=== PATIENT | male | born 1955 | race African-American/Black ===

== ENCOUNTER 2021-12-30 18:49 | Inpatient (IN) | payer OTHER ==
[2021-12-30 20:48] VITALS: BMI 23.4
[2021-12-30 21:50] LABS: INR-International Normal Ratio 1.6; Prothrombin Time 18.9 sec (12.0-14.7)
[2021-12-30] MEDS ORDERED: Morphine 2 MG/ML VIAL SLOW IVP PRN (21:50)
[2021-12-30 21:51] LABS: PTT 66.9 sec (22.9-36.1)
[2021-12-30 22:02] LABS: Hemoglobin 8.4 g/dL (14.0-18.0); Mean Corpuscular Volume 77.4 fL (78.0-98.0); Mean Platelet Volume 11.9 fL (7.4-10.4); Platelet Count 294 thou/uL (130-400); RBC Distribution Width 15.8 % (11.5-14.5); White Blood Cell (WBC) Count 19.5 thou/uL (4.8-10.8)
[2021-12-30 22:22] LABS: ALT (SGPT) 18 U/L (8-55); AST (SGOT) 28 U/L (5-34); Albumin 2.8 g/dL (3.4-4.8); Alkaline Phosphatase 227 U/L (40-110); Anion Gap 15 mmol/L (10-20); BUN (Urea Nitrogen) 32 mg/dL (8.4-25.7); Bilirubin, Total 2.8 mg/dL (0.2-1.2); Calc. Creatinine Clearance 38 mL/min (70-130); Carbon Dioxide 21 mmol/L (23-31); Chloride 109 mmol/L (98-107); Estimated GFR 35; Globulin 3.5 g/dL (2.4-3.5); Glucose 137 mg/dL (80-115); Potassium 3.3 mmol/L (3.5-5.1); Protein, Total 6.3 g/dL (5.8-8.1); Sodium 142 mmol/L (136-145)
[2021-12-30 22:40] LABS: Band 31 % (5-11); Hypochromia SLIGHT = 6-15 cells (100X) (0-5/hpf); Lymphocytes 1 % (21-51); MDiff Complete? YES; Monocytes 6 % (0-10); Neutrophil 62 % (42-75); Platelet Morphology Comment Appears Adequate; Polychromasia SLIGHT = 2-3 cells (100X) (0-2/hpf); Target Cells SLIGHT = 2-5 cells (100X) (0-1/hpf)
[2021-12-30 22:48] LABS: Lactic Acid 1.5 mmol/L (0.5-2.2)
[2021-12-30 22:51] LABS: Magnesium 1.9 mg/dL (1.6-2.6)
[2021-12-30] MEDS ORDERED: Vancomycin HCl 500 MG in Sodium Chloride 0.9% 100 ML IVPB SCH (23:00)
[2021-12-30] MEDS: Lactated Ringer's 1,000 ML IV SCH (23:38)
[2021-12-31] MEDS: Morphine 4 MG/ML VIAL SLOW IVP PRN ×2 (01:14→13:11)
[2021-12-31] MEDS: Cefepime 2 GM in Sodium Chloride 0.9% 100 ML IVPB SCH ×2 (02:14→13:12)
[2021-12-31 06:21] LABS: Reticulocyte Count 0.4 % (0.5-1.5)
[2021-12-31] MEDS ORDERED: Neomycin-Polymyxin 1 ML AMP ONE ×2 (06:32→18:39)
[2021-12-31 06:44] LABS: Band 34 % (5-11); Hemoglobin 7.7 g/dL (14.0-18.0); Hypochromia SLIGHT = 6-15 cells (100X) (0-5/hpf); MDiff Complete? YES; Mean Corpuscular HGB CONC 29.4 g/dL (32.0-36.0); Mean Corpuscular Hemoglobin 22.6 pg (27.0-31.0); Mean Corpuscular Volume 77.1 fL (78.0-98.0); Mean Platelet Volume 12.1 fL (7.4-10.4); Microcytosis SLIGHT = 6-15 cells (100X) (0-5/hpf); Monocytes 2 % (0-10); Neutrophil 64 % (42-75); Platelet Count 282 thou/uL (130-400); Platelet Morphology Comment Appears Adequate; RBC Distribution Width 15.9 % (11.5-14.5); Red Blood Cell (RBC) Count 3.41 mill/uL (4.70-6.10); White Blood Cell (WBC) Count 19.9 thou/uL (4.8-10.8)
[2021-12-31] MEDS ORDERED: fentaNYL Citrate/PF 100 MCG/2 ML SYRINGE ONE ×4 (07:02→20:39)
[2021-12-31] MEDS ORDERED: PROPOFOL 200 MG/20 ML VIAL ONE ×2 (07:29→19:27)
[2021-12-31] MEDS ORDERED: Rocuronium Bromide 10 MG/ML (10ML VIAL) ONE (07:29)
[2021-12-31] MEDS ORDERED: Ondansetron PF 4 MG/2 ML Vial ONE ×3 (07:29→19:27)
[2021-12-31] MEDS ORDERED: Norepinephrine 4 MG/4 ML VIAL ONE (07:34)
[2021-12-31 07:37] LABS: ALT (SGPT) 19 U/L (8-55); AST (SGOT) 34 U/L (5-34); Albumin 2.5 g/dL (3.4-4.8); Alkaline Phosphatase 236 U/L (40-110); Anion Gap 13 mmol/L (10-20); BUN (Urea Nitrogen) 31 mg/dL (8.4-25.7); Bilirubin, Total 2.3 mg/dL (0.2-1.2); Calc. Creatinine Clearance 41 mL/min (70-130); Calcium 8.8 mg/dL (7.8-10.44); Carbon Dioxide 20 mmol/L (23-31); Chloride 109 mmol/L (98-107); Estimated GFR 38; Globulin 3.1 g/dL (2.4-3.5); Glucose 153 mg/dL (80-115); Iron 9 ug/dL (65-175); Iron Binding Capacity, Total 103 mcg/dL (261-462); Magnesium 1.8 mg/dL (1.6-2.6); Potassium 3.4 mmol/L (3.5-5.1); Protein, Total 5.6 g/dL (5.8-8.1); Sodium 139 mmol/L (136-145)
[2021-12-31] MEDS ORDERED: SUGAMMADEX SODIUM 200 MG/2 ML VIAL ONE (08:38)
[2021-12-31] MEDS ORDERED: PACU-Morphine 4MG/ML VIAL SLOW IVP PRN (09:24)
[2021-12-31] MEDS ORDERED: Ondansetron HCl/PF 4 MG/2 ML Vial IVP PRN ×2 (09:24→18:53)
[2021-12-31] MEDS ORDERED: Promethazine HCl 25 MG/ML VIAL IVPB PRN ×2 (09:24→18:53)
[2021-12-31] MEDS ORDERED: Promethazine HCl 25 MG/ML VIAL IM PRN ×2 (09:24→18:53)
[2021-12-31] MEDS ORDERED: Morphine Sulfate 2 MG/ML SYRINGE SLOW IVP PRN (09:24)
[2021-12-31] MEDS ORDERED: HYDROmorphone 2 MG/ML VIAL SLOW IVP PRN (09:24)
[2021-12-31] MEDS ORDERED: Fentanyl 100 MCG/2 ML VIAL ONE ×2 (09:32→10:22)
[2021-12-31] MEDS: Lactated Ringer's 1,000 ML IV SCH ×2 (10:47→12:14)
[2021-12-31 13:11] LABS: Hemoglobin 8.8 g/dL (14.0-18.0)
[2021-12-31] MEDS ORDERED: Lidocaine 1% (PF) 30 ML VIAL ONE (13:23)
[2021-12-31 13:31] LABS: INR-International Normal Ratio 1.4; PTT 50.6 sec (22.9-36.1); Prothrombin Time 17.8 sec (12.0-14.7)
[2021-12-31 13:45] LABS: Hep C IgG Ab Non-Reactive (NonReactive); Hep C Index 0.09 S/CO (0-0.79)
[2021-12-31 15:15] LABS: Synovial Fluid, Protein 3.1 g/dL (Not Available)
[2021-12-31] MEDS: Acetaminophen 325 MG TAB PO PRN (16:01)
[2021-12-31] MEDS: Sodium Chloride 0.9% 1,000 ML IV SCH (16:01)
[2021-12-31 16:19] LABS: RBC Count-Automated (BF) 113637 /cu.mm; WBC/Nucleated-Auto (BF) 46477 /cu.mm
[2021-12-31 16:33] LABS: BF Color Red; Body Fluid Source Synovial Fluid; Clarity Cloudy/Turbid (Clear); Tube # EDTA
[2021-12-31 16:46] LABS: BF Segmented Neutrophils 96 %; Cell Count Non Hematic 1 %; Lymphocytes 3 %
[2021-12-31] MEDS ORDERED: VANCOMYCIN 1.25 GM/250 ML BAG 1.25 GM in Premix Bag 1 BAG IVPB SCH (17:00)
[2021-12-31] MEDS ORDERED: Bupivacaine PF 0.5% 30 ML VIAL ONE (18:39)
[2021-12-31] MEDS ORDERED: Meperidine HCl/PF 25 MG/ML VIAL SLOW IVP PRN (18:53)
[2021-12-31] MEDS ORDERED: Dexamethasone 20 MG/5 ML VIAL ONE (19:27)
[2021-12-31] MEDS ORDERED: Succinylcholine 200 MG/10 ml SYRINGE FS ONE (19:27)
[2021-12-31] MEDS ORDERED: PHENYLEPHRINE-NS 100 MCG/ML 10 ML SYRINGE ONE (19:27)
[2021-12-31] MEDS ORDERED: Ketorolac Tromethamine 30 MG/ML VIAL ONE (19:27)
[2022-01-01] MEDS: Cefepime 2 GM in Sodium Chloride 0.9% 100 ML IVPB SCH ×2 (03:05→13:53)
[2022-01-01] MEDS: Sodium Chloride 0.9% 1,000 ML IV SCH ×3 (03:05→21:06)
[2022-01-01] MEDS: Morphine 4 MG/ML VIAL SLOW IVP PRN ×3 (03:58→17:19)
[2022-01-01 06:23] LABS: Hemoglobin 8.4 g/dL (14.0-18.0); Mean Corpuscular HGB CONC 29.9 g/dL (32.0-36.0); Mean Corpuscular Hemoglobin 23.4 pg (27.0-31.0); Mean Corpuscular Volume 78.2 fL (78.0-98.0); Mean Platelet Volume 11.7 fL (7.4-10.4); Platelet Count 282 thou/uL (130-400); White Blood Cell (WBC) Count 25.2 thou/uL (4.8-10.8)
[2022-01-01 06:42] LABS: Anisocytosis SLIGHT = 6-15 cells (100X) (0-5/hpf); Band 28 % (5-11); Burr Cells SLIGHT = 2-5 cells (100X) (0-1/hpf); Elliptocytes SLIGHT = 2-5 cells (100X) (0-1/hpf); Hypochromia SLIGHT = 6-15 cells (100X) (0-5/hpf); Lymphocytes 4 % (21-51); MDiff Complete? YES; Metamyelocyte 1 % (0-0); Neutrophil 67 % (42-75); Poikilocytosis SLIGHT = 6-15 cells (100X) (0-5/hpf); Schistocytes SLIGHT = 2-5 cells (100X) (0-1/hpf); Target Cells SLIGHT = 2-5 cells (100X) (0-1/hpf)
[2022-01-01 09:43] LABS: ALT (SGPT) 22 U/L (8-55); AST (SGOT) 37 U/L (5-34); Albumin 2.5 g/dL (3.4-4.8); Alkaline Phosphatase 251 U/L (40-110); Anion Gap 12 mmol/L (10-20); BUN (Urea Nitrogen) 29 mg/dL (8.4-25.7); Calc. Creatinine Clearance 51 mL/min (70-130); Calcium 8.9 mg/dL (7.8-10.44); Carbon Dioxide 20 mmol/L (23-31); Chloride 111 mmol/L (98-107); Estimated GFR 49; Globulin 3.4 g/dL (2.4-3.5); Glucose 143 mg/dL (80-115); Potassium 4.3 mmol/L (3.5-5.1); Protein, Total 5.9 g/dL (5.8-8.1); Sodium 139 mmol/L (136-145)
[2022-01-01] MEDS ORDERED: Colchicine 0.6 MG TAB PO SCH (10:30)
[2022-01-01] MEDS: Colchicine 0.6 MG TAB PO SCH ×2 (12:14→21:05)
[2022-01-01 16:34] LABS: Vancomycin, Trough 10.5 ug/mL
[2022-01-01] MEDS: Vancomycin 1 GM in Premix Bag 1 BAG IVPB SCH (17:16)
[2022-01-01] MEDS: Acetaminophen 325 MG TAB PO PRN (17:18)
[2022-01-02] MEDS: Morphine 4 MG/ML VIAL SLOW IVP PRN ×2 (05:06→09:00)
[2022-01-02] MEDS: Vancomycin 1 GM in Premix Bag 1 BAG IVPB SCH ×2 (05:06→17:38)
[2022-01-02 06:40] LABS: Mean Corpuscular HGB CONC 30.4 g/dL (32.0-36.0); Mean Corpuscular Hemoglobin 23.5 pg (27.0-31.0); Mean Corpuscular Volume 77.2 fL (78.0-98.0); Mean Platelet Volume 11.7 fL (7.4-10.4); Platelet Count 297 thou/uL (130-400); RBC Distribution Width 18.9 % (11.5-14.5); Red Blood Cell (RBC) Count 3.82 mill/uL (4.70-6.10); White Blood Cell (WBC) Count 26.8 thou/uL (4.8-10.8)
[2022-01-02 06:50] LABS: Anion Gap 13 mmol/L (10-20); BUN (Urea Nitrogen) 32 mg/dL (8.4-25.7); Calc. Creatinine Clearance 65 mL/min (70-130); Calcium 8.7 mg/dL (7.8-10.44); Carbon Dioxide 21 mmol/L (23-31); Chloride 107 mmol/L (98-107); Estimated GFR 66; Glucose 103 mg/dL (80-115); Potassium 3.7 mmol/L (3.5-5.1); Sodium 137 mmol/L (136-145)
[2022-01-02 06:52] LABS: Band 15 % (5-11); Elliptocytes SLIGHT = 2-5 cells (100X) (0-1/hpf); Eosinophils 1 % (0-10); Lymphocytes 3 % (21-51); MDiff Complete? YES; Monocytes 4 % (0-10); Myelocyte 2 % (0-0); Neutrophil 75 % (42-75); Nucleated RBC 1 % (0); Schistocytes SLIGHT = 2-5 cells (100X) (0-1/hpf); Target Cells SLIGHT = 2-5 cells (100X) (0-1/hpf)
[2022-01-02] MEDS: Colchicine 0.6 MG TAB PO SCH ×3 (08:53→21:26)
[2022-01-02] MEDS: Sodium Chloride 0.9% 1,000 ML IV SCH (08:53)
[2022-01-02] MEDS ORDERED: hydrALAZINE 20 MG/ML VIAL SLOW IVP PRN (09:33)
[2022-01-02] MEDS ORDERED: Amlodipine 5 MG TAB PO SCH (09:45)
[2022-01-02] MEDS: Acetaminophen 325 MG TAB PO PRN (13:37)
[2022-01-02] MEDS: traMADol HCl 50 MG TAB PO PRN ×2 (13:38→21:26)
[2022-01-03 01:56] LABS: Bilirubin Negative (Negative); Blood, Urine Trace (Negative); Clarity Clear (Clear); Glucose, Urine (Dipstick) Normal (Negative); Ketone, Urine Negative (Negative); Leukocyte Negative Leu/uL (Negative); Nitrite Negative (Negative); Protein, Urine (Dipstick) 20 mg/dL (Neg-Trace); Specific Gravity, Urine 1.012 (1.002-1.036); Squamous Epithelial None Seen HPF (0-3); Urobilinogen Normal mg/dL (Less than 2); WBC/HPF 0-3 HPF (0-3)
[2022-01-03 01:57] LABS: Bacteria/HPF 1+ HPF (None Seen)
[2022-01-03] MEDS: traMADol HCl 50 MG TAB PO PRN ×3 (04:23→20:54)
[2022-01-03 06:15] LABS: Anion Gap 15 mmol/L (10-20); BUN (Urea Nitrogen) 25 mg/dL (8.4-25.7); Calc. Creatinine Clearance 73 mL/min (70-130); Carbon Dioxide 21 mmol/L (23-31); Estimated GFR 75; Glucose 91 mg/dL (80-115); Potassium 3.9 mmol/L (3.5-5.1); Sodium 135 mmol/L (136-145)
[2022-01-03] MEDS: Vancomycin 1 GM in Premix Bag 1 BAG IVPB SCH ×2 (06:20→16:52)
[2022-01-03 06:22] LABS: Chloride 103 mmol/L (98-107)
[2022-01-03 06:33] LABS: Anisocytosis MODERATE=16-30 cells (100X) (0-5/hpf); Band 20 % (5-11); Elliptocytes SLIGHT = 2-5 cells (100X) (0-1/hpf); Hemoglobin 9.6 g/dL (14.0-18.0); Lymphocytes 10 % (21-51); MDiff Complete? YES; Mean Corpuscular HGB CONC 31.2 g/dL (32.0-36.0); Mean Corpuscular Hemoglobin 23.3 pg (27.0-31.0); Mean Corpuscular Volume 74.6 fL (78.0-98.0); Monocytes 1 % (0-10); Neutrophil 69 % (42-75); Platelet Count 319 thou/uL (130-400); Platelet Morphology Comment Appears Adequate; RBC Distribution Width 18.5 % (11.5-14.5); Red Blood Cell (RBC) Count 4.13 mill/uL (4.70-6.10); Target Cells SLIGHT = 2-5 cells (100X) (0-1/hpf); White Blood Cell (WBC) Count 24.2 thou/uL (4.8-10.8)
[2022-01-03] MEDS: Lisinopril 20 MG TAB PO SCH (09:22)
[2022-01-03] MEDS: Amlodipine 5 MG TAB PO SCH (09:23)
[2022-01-03] MEDS: Colchicine 0.6 MG TAB PO SCH ×2 (09:23→20:55)
[2022-01-03] MEDS: Acetaminophen 325 MG TAB PO PRN ×2 (09:31→20:54)
[2022-01-03] MEDS: Ketorolac Tromethamine 30 MG/ML VIAL IVP SCH ×2 (14:03→17:08)
[2022-01-04] MEDS: Acetaminophen 325 MG TAB PO PRN ×2 (00:01→04:37)
[2022-01-04] MEDS: traMADol HCl 50 MG TAB PO PRN ×4 (00:02→20:44)
[2022-01-04] MEDS: Ketorolac Tromethamine 30 MG/ML VIAL IVP SCH ×4 (00:03→18:03)
[2022-01-04] MEDS: Vancomycin 1 GM in Premix Bag 1 BAG IVPB SCH ×2 (04:35→18:03)
[2022-01-04 05:33] LABS: Anion Gap 12 mmol/L (10-20); BUN (Urea Nitrogen) 26 mg/dL (8.4-25.7); Calc. Creatinine Clearance 79 mL/min (70-130); Calcium 8.6 mg/dL (7.8-10.44); Carbon Dioxide 24 mmol/L (23-31); Chloride 101 mmol/L (98-107); Estimated GFR 84; Glucose 85 mg/dL (80-115); Potassium 3.9 mmol/L (3.5-5.1); Sodium 133 mmol/L (136-145)
[2022-01-04 06:08] LABS: Anisocytosis SLIGHT = 6-15 cells (100X) (0-5/hpf); Band 9 % (5-11); Hemoglobin 9.2 g/dL (14.0-18.0); Lymphocytes 10 % (21-51); MDiff Complete? YES; Mean Corpuscular HGB CONC 30.6 g/dL (32.0-36.0); Mean Corpuscular Hemoglobin 23.1 pg (27.0-31.0); Mean Corpuscular Volume 75.4 fL (78.0-98.0); Metamyelocyte 1 % (0-0); Monocytes 3 % (0-10); Myelocyte 2 % (0-0); Neutrophil 75 % (42-75); Platelet Count 313 thou/uL (130-400); RBC Distribution Width 19.3 % (11.5-14.5); Red Blood Cell (RBC) Count 3.97 mill/uL (4.70-6.10); Schistocytes SLIGHT = 2-5 cells (100X) (0-1/hpf); Target Cells SLIGHT = 2-5 cells (100X) (0-1/hpf); White Blood Cell (WBC) Count 23.3 thou/uL (4.8-10.8)
[2022-01-04] MEDS: Colchicine 0.6 MG TAB PO SCH ×2 (08:42→20:45)
[2022-01-04] MEDS: Lisinopril 20 MG TAB PO SCH (08:56)
[2022-01-04] MEDS: Amlodipine 5 MG TAB PO SCH (08:56)
[2022-01-04] MEDS: Ondansetron PF 4 MG/2 ML Vial IVP PRN (20:44)
[2022-01-05 02:37] LABS: QuantiFERON-TB Gold Plus POSITIVE (Negative)
[2022-01-05] MEDS: Morphine 4 MG/ML VIAL SLOW IVP PRN ×2 (02:48→22:06)
[2022-01-05] MEDS: Ketorolac Tromethamine 30 MG/ML VIAL IVP SCH ×5 (05:30→23:00)
[2022-01-05] MEDS: Vancomycin 1 GM in Premix Bag 1 BAG IVPB SCH (05:30)
[2022-01-05 06:04] LABS: Anion Gap 12 mmol/L (10-20); BUN (Urea Nitrogen) 27 mg/dL (8.4-25.7); Calc. Creatinine Clearance 68 mL/min (70-130); Calcium 8.6 mg/dL (7.8-10.44); Carbon Dioxide 23 mmol/L (23-31); Chloride 101 mmol/L (98-107); Estimated GFR 69; Glucose 101 mg/dL (80-115); Potassium 4.2 mmol/L (3.5-5.1); Sodium 132 mmol/L (136-145)
[2022-01-05 06:39] LABS: Anisocytosis SLIGHT = 6-15 cells (100X) (0-5/hpf); Band 14 % (5-11); Elliptocytes SLIGHT = 2-5 cells (100X) (0-1/hpf); Eosinophils 2 % (0-10); Hemoglobin 8.5 g/dL (14.0-18.0); Hypochromia SLIGHT = 6-15 cells (100X) (0-5/hpf); Lymphocytes 9 % (21-51); MDiff Complete? YES; Mean Corpuscular HGB CONC 30.5 g/dL (32.0-36.0); Mean Corpuscular Hemoglobin 23.1 pg (27.0-31.0); Mean Corpuscular Volume 75.9 fl (78.0-98.0); Mean Platelet Volume 11.2 fL (7.4-10.4); Monocytes 4 % (0-10); Myelocyte 1 % (0-0); Neutrophil 70 % (42-75); Platelet Count 367 thou/uL (130-400); Platelet Morphology Comment Appears Adequate; RBC Distribution Width 19.1 % (11.5-14.5); Red Blood Cell (RBC) Count 3.66 mill/uL (4.70-6.10); Target Cells SLIGHT = 2-5 cells (100X) (0-1/hpf); White Blood Cell (WBC) Count 23.6 thou/uL (4.8-10.8)
[2022-01-05] MEDS ORDERED: PROPOFOL 200 MG/20 ML VIAL ONE (09:04)
[2022-01-05] MEDS ORDERED: Magnevist 469MG/ML 20 ML VIAL ONE ×2 (10:21)
[2022-01-05] MEDS: Colchicine 0.6 MG TAB PO SCH ×2 (10:25→20:30)
[2022-01-05] MEDS: Lisinopril 20 MG TAB PO SCH (10:25)
[2022-01-05] MEDS: Amlodipine 5 MG TAB PO SCH (10:25)
[2022-01-05] MEDS: Vancomycin HCl 750 MG in Sodium Chloride 0.9% 250 ML 250 ML IVPB SCH (18:32)
[2022-01-05] MEDS: Acetaminophen 325 MG TAB PO PRN (20:28)
[2022-01-05] MEDS: traMADol HCl 50 MG TAB PO PRN (20:29)
[2022-01-06] MEDS: Ketorolac Tromethamine 30 MG/ML VIAL IVP SCH ×3 (05:39→17:25)
[2022-01-06] MEDS: Vancomycin HCl 750 MG in Sodium Chloride 0.9% 250 ML 250 ML IVPB SCH ×2 (05:39→17:25)
[2022-01-06 05:59] LABS: #Basophils 0.1 thou/uL (0.0-0.2); #Eosinphils 0.1 thou/uL (0.0-0.7); #Lymphocytes 1.9 thou/uL (1.20-3.40); #Monocytes 1.3 thou/uL (0.11-0.59); #Neutrophils 14.5 thou/uL (1.40-6.50); %Basophils 0.3 % (0.0-1.0); %Eosinophils 0.5 % (0.0-10.0); %Lymphocytes 10.4 % (21.0-51.0); %Monocytes 7.2 % (0.0-10.0); %Neutrophils 81.7 % (42.0-75.0); Hemoglobin 8.3 g/dL (14.0-18.0); Mean Corpuscular HGB CONC 31.1 g/dL (32.0-36.0); Mean Corpuscular Hemoglobin 23.3 pg (27.0-31.0); Mean Corpuscular Volume 75.1 fl (78.0-98.0); Mean Platelet Volume 11.7 fL (7.4-10.4); Platelet Count 421 thou/uL (130-400); RBC Distribution Width 19.9 % (11.5-14.5); Red Blood Cell (RBC) Count 3.54 mill/uL (4.70-6.10); White Blood Cell (WBC) Count 17.8 thou/uL (4.8-10.8)
[2022-01-06 06:58] LABS: Anion Gap 10 mmol/L (10-20); BUN (Urea Nitrogen) 24 mg/dL (8.4-25.7); Calc. Creatinine Clearance 70 mL/min (70-130); Calcium 8.8 mg/dL (7.8-10.44); Carbon Dioxide 25 mmol/L (23-31); Chloride 105 mmol/L (98-107); Estimated GFR 72; Glucose 88 mg/dL (80-115); Potassium 4.4 mmol/L (3.5-5.1); Sodium 136 mmol/L (136-145)
[2022-01-06] MEDS: Colchicine 0.6 MG TAB PO SCH ×2 (09:31→20:54)
[2022-01-06] MEDS: Lisinopril 20 MG TAB PO SCH (09:31)
[2022-01-06] MEDS: Amlodipine 5 MG TAB PO SCH (09:31)
[2022-01-06] MEDS: traMADol HCl 50 MG TAB PO PRN ×2 (09:45→20:54)
[2022-01-07] MEDS: Ketorolac Tromethamine 30 MG/ML VIAL IVP SCH ×5 (00:18→23:27)
[2022-01-07 05:28] LABS: Anion Gap 15 mmol/L (10-20); BUN (Urea Nitrogen) 30 mg/dL (8.4-25.7); Calc. Creatinine Clearance 59 mL/min (70-130); Calcium 9.2 mg/dL (7.8-10.44); Carbon Dioxide 22 mmol/L (23-31); Chloride 106 mmol/L (98-107); Estimated GFR 59; Glucose 87 mg/dL (80-115); Potassium 4.2 mmol/L (3.5-5.1); Sodium 139 mmol/L (136-145)
[2022-01-07 05:56] LABS: #Eosinphils 0.1 thou/uL (0.0-0.7); #Lymphocytes 1.8 thou/uL (1.20-3.40); #Neutrophils 14.6 thou/uL (1.40-6.50); %Basophils 0.2 % (0.0-1.0); %Eosinophils 0.5 % (0.0-10.0); %Lymphocytes 10.5 % (21.0-51.0); %Monocytes 5.6 % (0.0-10.0); %Neutrophils 83.3 % (42.0-75.0); Hemoglobin 9.1 g/dL (14.0-18.0); Mean Corpuscular HGB CONC 30.3 g/dL (32.0-36.0); Mean Corpuscular Hemoglobin 23.1 pg (27.0-31.0); Mean Corpuscular Volume 76.3 fl (78.0-98.0); Mean Platelet Volume 11.2 fL (7.4-10.4); Platelet Count 571 thou/uL (130-400); RBC Distribution Width 20.4 % (11.5-14.5); Red Blood Cell (RBC) Count 3.92 mill/uL (4.70-6.10); White Blood Cell (WBC) Count 17.5 thou/uL (4.8-10.8)
[2022-01-07] MEDS: Vancomycin HCl 750 MG in Sodium Chloride 0.9% 250 ML 250 ML IVPB SCH (06:02)
[2022-01-07] MEDS: traMADol HCl 50 MG TAB PO PRN ×3 (06:46→20:21)
[2022-01-07] MEDS: Colchicine 0.6 MG TAB PO SCH ×2 (08:56→20:21)
[2022-01-07] MEDS: Lisinopril 20 MG TAB PO SCH (08:56)
[2022-01-07] MEDS: Amlodipine 5 MG TAB PO SCH (08:56)
[2022-01-07] MEDS: VANCOMYCIN 1.25 GM/250 ML BAG 1.25 GM in Premix Bag 1 BAG IVPB SCH (17:14)
[2022-01-08] MEDS: Ketorolac Tromethamine 30 MG/ML VIAL IVP SCH ×2 (05:33→12:46)
[2022-01-08 06:17] LABS: Anion Gap 12 mmol/L (10-20); BUN (Urea Nitrogen) 30 mg/dL (8.4-25.7); Calc. Creatinine Clearance 61 mL/min (70-130); Carbon Dioxide 22 mmol/L (23-31); Chloride 106 mmol/L (98-107); Estimated GFR 61; Glucose 85 mg/dL (80-115); Potassium 4.3 mmol/L (3.5-5.1); Sodium 136 mmol/L (136-145)
[2022-01-08 07:39] LABS: Anisocytosis MODERATE=16-30 cells (100X) (0-5/hpf); Band 4 % (5-11); Eosinophils 3 % (0-10); Hemoglobin 7.4 g/dL (14.0-18.0); Hypochromia SLIGHT = 6-15 cells (100X) (0-5/hpf); Lymphocytes 13 % (21-51); MDiff Complete? YES; Mean Corpuscular HGB CONC 30.3 g/dL (32.0-36.0); Mean Corpuscular Hemoglobin 22.5 pg (27.0-31.0); Mean Corpuscular Volume 74.4 fl (78.0-98.0); Microcytosis SLIGHT = 6-15 cells (100X) (0-5/hpf); Monocytes 3 % (0-10); Neutrophil 77 % (42-75); Ovalocytes SLIGHT = 2-5 cells (100X) (0-1/hpf); Platelet Count 638 thou/uL (130-400); Polychromasia SLIGHT = 2-3 cells (100X) (0-2/hpf); Red Blood Cell (RBC) Count 3.27 mill/uL (4.70-6.10); Schistocytes SLIGHT = 2-5 cells (100X) (0-1/hpf); White Blood Cell (WBC) Count 16.1 thou/uL (4.8-10.8)
[2022-01-08] MEDS: Lisinopril 20 MG TAB PO SCH (10:14)
[2022-01-08] MEDS: Ondansetron PF 4 MG/2 ML Vial IVP PRN (10:14)
[2022-01-08] MEDS: Colchicine 0.6 MG TAB PO SCH (10:14)
[2022-01-08] MEDS: Amlodipine 5 MG TAB PO SCH (10:14)
[2022-01-08] MEDS: traMADol HCl 50 MG TAB PO PRN ×2 (10:15→16:09)
[2022-01-08 11:24] VITALS: TEMP 98
[2022-01-08 15:53] VITALS: BP 134/78
[2022-01-08] MEDS: VANCOMYCIN 1.25 GM/250 ML BAG 1.25 GM in Premix Bag 1 BAG IVPB SCH (16:07)
[2022-01-08] MEDS: Acetaminophen 325 MG TAB PO PRN (16:09)
== END 2022-01-08 17:10 | DRG 853 ==
LOC: SURG B 20:37 → EEVIPCON 20:37 → SURG B 01-06 15:12
PROVIDERS: ADMIT Internal Medicine; ATTEND Hospitalist
PROC: 3E03329 Introduction of Other Anti-infective into Peripheral Vein, Percutaneous Approach (ICD-10-PCS; 2021-12-30)
PROC: 009U0ZZ Drainage of Spinal Canal, Open Approach (ICD-10-PCS; principal; 2021-12-31)
PROC: 00NY0ZZ Release Lumbar Spinal Cord, Open Approach (ICD-10-PCS; 2021-12-31)
PROC: 0SBD4ZZ Excision of Left Knee Joint, Percutaneous Endoscopic Approach (ICD-10-PCS; 2021-12-31)
PROC: 0S9D3ZX Drainage of Left Knee Joint, Percutaneous Approach, Diagnostic (ICD-10-PCS; 2021-12-31)
PROC: B24BZZ4 Ultrasonography of Heart with Aorta, Transesophageal (ICD-10-PCS; 2022-01-05)
PROC: 02HV33Z Insertion of Infusion Device into Superior Vena Cava, Percutaneous Approach (ICD-10-PCS; 2022-01-07)
PROC: B548ZZA Ultrasonography of Superior Vena Cava, Guidance (ICD-10-PCS; 2022-01-07)
DX: A41.02 Sepsis due to Methicillin resistant Staphylococcus aureus (principal); G06.1 Intraspinal abscess and granuloma; N17.0 Acute kidney failure with tubular necrosis; M00.062 Staphylococcal arthritis, left knee; M46.26 Osteomyelitis of vertebra, lumbar region; Z20.822 Contact with and (suspected) exposure to COVID-19; M46.46 Discitis, unspecified, lumbar region; M25.462 Effusion, left knee; E87.6 Hypokalemia; N18.2 Chronic kidney disease, stage 2 (mild); I12.9 Hypertensive chronic kidney disease with stage 1 through stage 4 chronic kidney disease, or unspecified chronic kidney disease; M65.9 Synovitis and tenosynovitis, unspecified; M10.9 Gout, unspecified; R65.20 Severe sepsis without septic shock; N40.0 Benign prostatic hyperplasia without lower urinary tract symptoms; D63.1 Anemia in chronic kidney disease; R13.10 Dysphagia, unspecified; I07.1 Rheumatic tricuspid insufficiency; M17.12 Unilateral primary osteoarthritis, left knee; Z79.899 Other long term (current) drug therapy; Z98.1 Arthrodesis status; Z22.7 Latent tuberculosis
CPT/HCPCS: 36415; 36430; 36569; 71045; 72156; 72157; 76000; 80048; 80053; 80202; 81001; 82728; 82945; 83540; 83550; 83605; 83735; 84157; 85025; 85046; 85060; 85610; 85652; 85730; 86140; 86141; 86480; 86803; 86850; 86900; 86901; 87040; 87070; 87077; 87149; 87186; 87205; 89051; 89060; 93005; 93010; 93306; 93312; 97139; A9579; C1713; C1751; J0360; J0692; J1100; J1885; J2001; J2270; J2405; J2704; J3010; J3370; J3490; J7050; J7120; P9016; P9059; S0020

== ENCOUNTER 2022-01-09 11:32 | Emergency (ER) | payer OTHER ==
[~2022-01-09 11:32] MED LIST: Iopamidol-370 76% 500 ML 1 ML ONE
[2022-01-09 13:11] LABS: #Eosinphils 0.1 thou/uL (0.0-0.7); #Lymphocytes 1.6 thou/uL (1.20-3.40); #Monocytes 1.1 thou/uL (0.11-0.59); #Neutrophils 15.4 thou/uL (1.40-6.50); %Basophils 0.1 % (0.0-1.0); %Eosinophils 0.3 % (0.0-10.0); %Lymphocytes 8.7 % (21.0-51.0); %Monocytes 5.8 % (0.0-10.0); %Neutrophils 85.1 % (42.0-75.0); Hemoglobin 7.7 g/dL (14.0-18.0); Mean Corpuscular HGB CONC 31.5 g/dL (32.0-36.0); Mean Corpuscular Hemoglobin 23.8 pg (27.0-31.0); Mean Corpuscular Volume 75.4 fl (78.0-98.0); Mean Platelet Volume 9.2 fL (7.4-10.4); Platelet Count 791 thou/uL (130-400); RBC Distribution Width 19.9 % (11.5-14.5); Red Blood Cell (RBC) Count 3.23 mill/uL (4.70-6.10); White Blood Cell (WBC) Count 18.1 thou/uL (4.8-10.8)
[2022-01-09 13:37] LABS: ALT (SGPT) 20 U/L (8-55); AST (SGOT) 22 U/L (5-34); Albumin 3.1 g/dL (3.4-4.8); Alkaline Phosphatase 162 U/L (40-110); Anion Gap 16 mmol/L (10-20); BUN (Urea Nitrogen) 30 mg/dL (8.4-25.7); Bilirubin, Total 1.2 mg/dL (0.2-1.2); Calc. Creatinine Clearance 0 mL/min (70-130); Calcium 9.5 mg/dL (7.8-10.44); Carbon Dioxide 20 mmol/L (23-31); Chloride 108 mmol/L (98-107); Estimated GFR 56; Globulin 4.4 g/dL (2.4-3.5); Glucose 88 mg/dL (80-115); Lipase 32 U/L (8-78); Potassium 4.5 mmol/L (3.5-5.1); Protein, Total 7.5 g/dL (5.8-8.1); Sodium 139 mmol/L (136-145)
== END 2022-01-09 15:25 ==
LOC: ERS 11:32
DX: R10.13 Epigastric pain (principal); R11.2 Nausea with vomiting, unspecified; R19.7 Diarrhea, unspecified; I10 Essential (primary) hypertension
CPT/HCPCS: 71045; 74177; 80053; 82274; 83690; 84484; 85025; 93005; Q9967

== ENCOUNTER 2022-01-10 23:54 | Emergency (ER) | payer OTHER ==
[2022-01-11] MEDS ORDERED: Morphine 4 MG/ML VIAL ONE (00:37)
[2022-01-11] MEDS ORDERED: Acetaminophen 500 MG TAB ONE (03:14)
[2022-01-11] MEDS ORDERED: Ketorolac Tromethamine 30 MG/ML VIAL ONE (03:14)
== END 2022-01-11 09:10 | disposition short-term general hospital (02) ==
LOC: ERS 23:54
DX: R10.11 Right upper quadrant pain (principal); K82.8 Other specified diseases of gallbladder; I10 Essential (primary) hypertension; Z79.01 Long term (current) use of anticoagulants; Z79.899 Other long term (current) drug therapy
CPT/HCPCS: 76705; 96374; 96375; J1885; J2270